=== PATIENT | female | born 1985 | race Caucasian/White ===

== ENCOUNTER → 2017-05-17 | Outpatient (CLI) | payer BC ==
[~2017-05-17] MED LIST: ACHD5005 PO; DOCU100C37 PO; FERR-74 PO; IBP600T1 PO; IBUP-1773 PO; OXYC-12 PO; PREN1TAB39 PO
== END ==
LOC: LAB 12:40
PROVIDERS: ATTEND Internal Medicine
DX: Z20.7 Contact with and (suspected) exposure to pediculosis, acariasis and other infestations (principal)
CPT/HCPCS: 87220